=== PATIENT | female | born 1980 | race Caucasian/White ===

== ENCOUNTER 2016-07-12 19:47 | Emergency (ER) | payer BC, OTHER ==
[2016-07-12 19:56] VITALS: BP 157/79
--- NOTE | 2016-07-12 20:27 | ERNOTE ---
Back Pain ER HPI Date of Service: 07/12/16 Presenting Symptoms: injury/pain to back Time Seen by Provider: 07/12/16 20:10 Source: patient, family Exam Limitations: no limitations Immunizations: IMMUNIZATION HX Immunizations Up to Date Yes History of Influenza Vaccine Yes Allergies/Adverse Reactions: Allergies Sulfa (Sulfonamide Antibiotics) [Sulfa(Sulfonamide Antibiotics)] Allergy (Mild, Verified 07/12/16 19:57) rash Home Medications: HOME MEDICATIONS Levothyroxine Sodium [Unithroid] 250 mcg PO DAILY 08/24/14 [Last Taken 09/04/14 08:00] Ibuprofen [Motrin] 200 - 800 mg PO Q6H PRN #100 tab 09/06/14 [Last Taken Unknown ] Cyclobenzaprine HCl 10 mg PO TID PRN #30 tablet 07/12/16 [Last Taken Unknown] Narrative: Patient comes to the emergency room with complains of having Low back pain since yesterday. 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 Since yesterday she's been having back pain. She's had back pain in the past as well. No history of radiation of pain to the legs. No problems with urine or bowel movement. Denies being . Her has had a vasectomy. No fever or chills. Timing: Reports: constant. Denies: getting worse Quality/Severity: Reports: moderate Location of pain: Reports: lower back, no radiation Activities at Onset: Reports: activity Recent Injury?: Reports: no Possible Precipitating Factor: Reports: lifting Associated Symptoms: Denies: fever/chills, constipation/incontinence, problems urinating Review of Systems - Review of Systems Constitutional: Present: no symptoms reported ENT: Present: no symptoms reported Respiratory: Present: no symptoms reported Gastrointestinal/Abdominal: Present: no symptoms reported Musculoskeletal: Present: other - back pain Skin: Present: no symptoms reported Neurological: Present: no symptoms reported All Other Systems: All systems neg except as marked - Patient's Past Medical History Patient History - Medical: Anemia, Depression, Hypothyroidism, Migraines Patient History - Cancer: No Hx of Cancer Patient History - Surgical Procedures: Cholecystectomy, D & C Patient History - Other: None LMP (Calendar): 11/30/13 - Family History Mother Family History - Medical: Hypothyroidism Family History - Cardiac/Respiratory: Deep Vein Thrombosis, Hypertension Father Family History - Medical: Hypothyroidism - Social History Living Situations: home Abuse History: No History of abuse Psych History: Hx of Depression Smoking Status: Never smoker Alcohol Use: none Drug Use: none - Immunizations Immunizations Up to Date: Yes History of Influenza Vaccine: Yes Physical Exam - Physical Exam Narrative: Patient is morbidly obese lady General Appearance: Present: wd/wn, alert, no apparent distress, mild distress Neck: Present: normal inspection, nontender, supple, full range of motion Respiratory: Present: no respiratory distress, normal breath sounds Cardiovascular/Chest: Present: regular rate, rhythm Back Exam: Present: normal inspection, normal range of motion, no CVA tenderness , no vertebral tenderness, muscle spasm. Absent: vertebral tenderness, decreased range of motion Extremity Exam: Present: normal inspection, normal range of motion Neurological Exam: Present: alert, oriented, normal mood/affect, no motor/ sensory deficits Skin Exam: Present: normal color, warm/dry ED Progress - Results and Orders Patient's Lab Results:: I have reviewed the patient's lab results. - Vital Signs Patient's Vital Signs:: I have reviewed the patient's vital signs. Vital Signs: Vital Signs 07/12/16 19:51 Temperature 35.7 C L Pulse Rate 76 Respiratory 16 Rate Blood Pressure 157/79 O2 Sat by Pulse 100 Oximetry - Progress/Reassessment Chief Complaint: Back Pain Progress:: Improved Departure Clinical Impression: Back pain - Departure Disposition: Home self-care Condition: Stable Instructions: Back Pain, Adult, Back Exercises Referrals: Dona Orosco DO [Primary Care Provider] - Prescriptions: Cyclobenzaprine HCl 10 mg PO TID PRN #30 tablet PRN Reason: Pain
[2016-07-12 20:35] LABS: Urine Bilirubin Negative (NEGATIVE); Urine Blood Negative /ul (NEGATIVE); Urine Ketone Negative (NEGATIVE); Urine Nitrite Negative (NEGATIVE); Urine Protein Negative (NEGATIVE); Urine Specific Gravity >=1.030 SP.GR. (1.005-1.010); Urine Urobilinogen Normal (NORMAL); Urine pH 5.5 pH (5.0-7.0)
[2016-07-12 20:44] LABS: Urine Appearance Clear; Urine Color Yellow; Urine WBC 0-5 /hpf (0-5)
[2016-07-12] MEDS ORDERED: KETOROLAC TROMETHAMINE 60 MG/2 ML VIAL IM ONE ×2 (20:44→20:55)
[2016-07-12 20:45] LABS: Urine Bacteria 2+; Urine Hyaline Cast 0-5 /LPF; Urine Mucus Few - 1+; Urine RBC 0-5 /hpf (0-5)
== END 2016-07-12 21:05 | disposition home or self-care (01) ==
LOC: ER 19:47
DX: M54.5 Low back pain (principal); E03.9 Hypothyroidism, unspecified

== ENCOUNTER 2017-01-31 22:12 | Emergency (ER) | payer BC, OTHER ==
[2017-01-31] MEDS ORDERED: DEXAMETHASONE SOD PHOSPHATE 10 MG/ML VIAL IM ONE (22:51)
[2017-01-31] MEDS ORDERED: METHYLPREDNISOLONE ACETATE 80 MG/ML VIAL IM ONE (22:51)
[2017-01-31] MEDS ORDERED: DEXAMETHASONE SOD PHOSPHATE 10 MG/ML VIAL ONE (22:52)
[2017-01-31] MEDS ORDERED: METHYLPREDNISOLONE ACETATE 80 MG/ML VIAL ONE (22:52)
--- NOTE | 2017-01-31 23:02 | ERNOTE ---
Lower Extremity HPI - General Lower Extremities Pain: foot: left - neuroma pain Time Seen by Provider: 01/31/17 22:44 Source: patient Exam Limitations: no limitations - Immun/Allergies/Home Medications Immunizations: IMMUNIZATION HX Immunizations Up to Date Yes History of Influenza Vaccine No Allergies/Adverse Reactions: Allergies Allergy/AdvReac Type Severity Reaction Status Date / Time Sulfa (Sulfonamide Allergy Mild Verified 07/12/16 19:57 Antibiotics) [Sulfa(Sulfonamide Antibiotics)] Home Medications: HOME MEDICATIONS Levothyroxine Sodium [Unithroid] 250 mcg PO DAILY 08/24/14 [Last Taken 09/04/14 08:00] Ibuprofen [Motrin] 200 - 800 mg PO Q6H PRN #100 tab 09/06/14 [Last Taken Unknown ] Cyclobenzaprine HCl 10 mg PO TID PRN #30 tablet 07/12/16 [Last Taken Unknown] Nabumetone 750 mg PO BID #20 tablet 01/31/17 [Last Taken Unknown] - History of Present Illness Narrative: Pt has known neuroma in her left foot. Podiatry injected it a couple of months ago. It began to hurt again 3 weeks ago and she put off calling podiatry until today. She was unable to get into podiatry until Nov. She states the pain increased while she was at work tonight Occurred: other - months ago, exacerbated 3 weeks ago Other Injuries: Reports: none Subsequent Symptoms: Denies: sensory loss, numbness Prior Treament: Reports: recently seen, treated by physician Review of Systems - Review of Systems Constitutional: Present: no symptoms reported Musculoskeletal: Present: See HPI Skin: Absent: rash Neurological: Absent: numbness, tingling Hematologic/Lymphatic: Absent: easy bruising - Patient's Past Medical History Patient History - Medical: Anemia, Depression, Hypothyroidism, Migraines, Other - Mortons Neuroma Patient History - Cardiac/Respiratory: No pertinent hx Patient History - Cancer: No Hx of Cancer Patient History - Surgical Procedures: Cholecystectomy, D & C Patient History - Other: None LMP (females 10-50): 1 month - Family History Mother Family History - Medical: Hypothyroidism Family History - Cardiac/Respiratory: Deep Vein Thrombosis, Hypertension Father Family History - Medical: Hypothyroidism - Social History Living Situations: spouse Abuse History: No History of abuse Psych History: Hx of Depression Smoking Status: Never smoker Have you smoked in the past 12 months: No Do you dip or chew tobacco: No Alcohol Use: rarely Drug Use: none - Immunizations Immunizations Up to Date: Yes History of Influenza Vaccine: No Physical Exam - Physical Exam General Appearance: Present: wd/wn, alert, no apparent distress Head Exam: Present: normal inspection, no evidence of injury Respiratory: Present: no respiratory distress, no accessory muscle use Peripheral Pulses: N=norm/S=strong/W=weak/B=bound/A=absent: Dorsalis-pedis (L): Normal Back Exam: Present: normal range of motion Extremity Exam: Present: other - left foot has minimal arch. tender between the 2nd and 3rd MT head, No swelling or deformity. Neurological Exam: Present: alert, oriented, normal mood/affect, no motor/ sensory deficits Skin Exam: Present: normal color, warm/dry, other - foot calloused, skin very dry. No open wounds Lymphatic Exam: Present: no adenopathy ED Progress - Vital Signs Vital Signs: Vital Signs 01/31/17 22:17 Temperature 36.2 C L Pulse Rate 84 Respiratory 14 Rate Blood Pressure 159/85 O2 Sat by Pulse 100 Oximetry - Progress/Reassessment Chief Complaint: Foot Injury/Pain Departure Clinical Impression: Neuroma of foot - Departure Disposition: Home Follow Up Needed Condition: Good Instructions: [place] Neuralgia Additional Instructions: See podiatry as scheduled. Do not take ibuprofen while taking the nabumatone. You may take tylenol as needed as well. Prescriptions: Nabumetone 750 mg PO BID #20 tablet
[2017-01-31 23:03] VITALS: BP 133/71
== END 2017-01-31 23:01 | disposition home or self-care (01) ==
LOC: ER 22:12
DX: D36.13 Benign neoplasm of peripheral nerves and autonomic nervous system of lower limb, including hip (principal); E03.9 Hypothyroidism, unspecified; D64.9 Anemia, unspecified; F32.89 Other specified depressive episodes